=== PATIENT | female | born 1970 | race African-American/Black ===

== ENCOUNTER 2020-12-14 20:09 | Emergency (ER) | payer MEDICARE, MEDICAID ==
[~2020-12-14] VITALS: Ht 167.6 cm; Wt 90.0 kg
[~2020-12-14 20:09] MED LIST: BUPR100T13; DIPH25CA83; LURA80TA; TRAZ-252; [UNRECOGNIZED DRUG - OTHER]; [UNRECOGNIZED DRUG - REMARK]
[2020-12-14 23:43] LABS: CHLORIDE 111 mEq/L (98-107)
[2020-12-14 23:44] LABS: *BARBITURATES SCREEN URINE NEGATIVE (NEGATIVE); *BENZODIAZEPINES SCREEN URINE NEGATIVE (NEGATIVE); CANNABINOID URINE SCREEN PRESUMTIVE POSITIVE (NEGATIVE); METHADONE URINE SCREEN NEGATIVE (NEGATIVE); OPIATES URINE SCREEN NEGATIVE (NEGATIVE); PHENCYCLIDINE URINE SCREEN PRESUMTIVE POSITIVE (NEGATIVE)
[2020-12-14 23:44] LABS: BASOPHILS % 0.6 % (0.0-2.0); EOSINOPHILS % 3.4 % (0.0-5.0); HEMATOCRIT. 42.1 % (36.0-48.0); HEMOGLOBIN. 13.9 g/dL (12.0-16.0); LYMPHOCYTES % 31.9 % (20.0-50.0); MEAN CORPUSCULAR HEMOGLOBIN 28.5 pg (28.0-32.0); MEAN CORPUSCULAR VOLUME 86.3 fL (81.0-99.0); MEAN PLATELET VOLUME 8.9 fl (7.4-10.4); MONOCYTES % 6.9 % (2.0-8.0); NEUTROPHILS % 57.2 % (40.0-76.0); PLATELET 308 x1000/uL (130-400); RED BLOOD CELL COUNT 4.88 mill/uL (4.2-5.4); RED CELL DISTRIBUTION WIDTH 16.3 % (11.6-14.6)
[2020-12-14 23:45] LABS: *AMPHETAMINES SCREEN URINE PRESUMTIVE POSITIVE (NEGATIVE); *COCAINE SCREEN URINE NEGATIVE (NEGATIVE)
[2020-12-14 23:48] LABS: ETHANOL BLOOD < 10 mg/dL
[2020-12-15 00:16] VITALS: BP 115/69
== END 2020-12-15 00:17 | disposition home or self-care (01) ==
LOC: ER 20:09
DX: T43.621A Poisoning by amphetamines, accidental (unintentional), initial encounter (principal); R07.89 Other chest pain; G92 Toxic encephalopathy; F15.129 Other stimulant abuse with intoxication, unspecified; F16.10 Hallucinogen abuse, uncomplicated; F12.10 Cannabis abuse, uncomplicated; Z72.0 Tobacco use; M79.605 Pain in left leg; M25.552 Pain in left hip; G89.29 Other chronic pain; Y92.89 Other specified places as the place of occurrence of the external cause
CPT/HCPCS: 36415; 71045; 80053; 80305; 80320; 83880; 84484; 85025; 93005; 99285; G0480

== ENCOUNTER 2020-12-15 02:03 | Emergency (ER) | payer MEDICARE, MEDICAID ==
[~2020-12-15] VITALS: Ht 167.6 cm; Wt 90.0 kg
[2020-12-15 02:07] VITALS: BP 133/96
== END 2020-12-15 02:29 | disposition home or self-care (01) ==
LOC: ER 02:03
DX: R07.89 Other chest pain (principal); G93.40 Encephalopathy, unspecified; F12.10 Cannabis abuse, uncomplicated; F15.10 Other stimulant abuse, uncomplicated; F13.10 Sedative, hypnotic or anxiolytic abuse, uncomplicated; Z71.51 Drug abuse counseling and surveillance of drug abuser
CPT/HCPCS: 93005; 99283

== ENCOUNTER 2021-01-28 21:49 | Emergency (ER) | payer MEDICARE, MEDICAID ==
[~2021-01-28] VITALS: Ht 170.2 cm; Wt 100.0 kg
[2021-01-28 21:52] VITALS: BP 159/86
== END 2021-01-28 23:00 | disposition left against medical advice (07) ==
LOC: ER 21:49
DX: Z53.21 Procedure and treatment not carried out due to patient leaving prior to being seen by health care provider (principal)

== ENCOUNTER 2021-12-05 23:15 | Emergency (ER) | payer MEDICARE, MEDICAID ==
[~2021-12-05] VITALS: Ht 165.1 cm; Wt 91.0 kg
[~2021-12-05 23:15] MED LIST changes: -LURA80TA; +LURA80TA2
[2021-12-06 06:00] VITALS: BP 133/85
== END 2021-12-06 06:48 | disposition home or self-care (01) ==
LOC: ER 23:45
DX: G89.18 Other acute postprocedural pain (principal); I10 Essential (primary) hypertension
CPT/HCPCS: 73070; 99283

== ENCOUNTER 2022-04-23 09:30 | Inpatient (IN) | payer MEDICARE, MEDICAID ==
[~2022-04-23] VITALS: Ht 167.6 cm; Wt 90.7 kg
[2022-04-23] MEDS ORDERED: MORPHINE SULFATE 4 MG/ML CPJ (NOT FOR IM USE) IV STA (09:50)
[2022-04-23 10:38] LABS: BASOPHILS % 1.2 % (0.0-2.0); EOSINOPHILS % 3.8 % (0.0-5.0); HEMATOCRIT. 41.6 % (36.0-48.0); HEMOGLOBIN. 13.8 g/dL (12.0-16.0); LYMPHOCYTES % 48.8 % (20.0-50.0); MEAN CORPUSCULAR HEMOGLOBIN 28.8 pg (28.0-32.0); MEAN CORPUSCULAR VOLUME 87.1 fL (81.0-99.0); MEAN PLATELET VOLUME 9.1 fl (7.4-10.4); MONOCYTES % 6.6 % (2.0-8.0); NEUTROPHILS % 39.6 % (40.0-76.0); PLATELET 245 x1000/uL (130-400); RED BLOOD CELL COUNT 4.78 mill/uL (4.2-5.4); RED CELL DISTRIBUTION WIDTH 16.7 % (11.6-14.6)
[2022-04-23 10:47] LABS: CHLORIDE 106 mEq/L (98-107)
[2022-04-23 10:50] LABS: INR 1.1; PROTHROMBIN TIME 11.4 sec (9.6-11.0)
[2022-04-23] MEDS ORDERED: MORPHINE SULFATE 4 MG/ML CPJ (NOT FOR IM USE) IV ONE (13:15)
[2022-04-23] MEDS ORDERED: CLONIDINE 0.1MG TABLET PO PRN (14:15)
[2022-04-23] MEDS ORDERED: DOCUSATE SODIUM 100MG CAPSULE PO PRN (14:15)
[2022-04-23] MEDS ORDERED: ONDANSETRON HCL 4MG/2ML INJ IV PRN (14:15)
[2022-04-23] MEDS ORDERED: KETOROLAC 15MG/ML VIAL IV PRN (14:15)
[2022-04-23] MEDS ORDERED: ACETAMINOPHEN 325MG TABLET PO PRN ×2 (14:15)
[2022-04-23] MEDS ORDERED: IPRATROPIUM/ALBUTEROL 0.5-3(2.5)MG/3ML NEB NEB PRN (14:15)
[2022-04-23] MEDS ORDERED: MAGNESIUM/ALUMINUM HYDROXIDE/SIMETHICONE 30ML UDC PO PRN (14:15)
[2022-04-23] MEDS ORDERED: NITROGLYCERIN 0.4MG TABLET SL SL PRN (14:15)
[2022-04-23] MEDS ORDERED: GUAIFENESIN 200MG/10ML SUGAR FREE UDC PO PRN (14:15)
[2022-04-23] MEDS ORDERED: NALOXONE HCL 0.4MG/ML VIAL IV PRN (14:30)
[2022-04-23 15:04] LABS: T4 FREE 1.23 ng/dL (0.76-1.46)
[2022-04-23 15:21] LABS: VITAMIN B12 SERUM 363 pg/mL (211-911)
[2022-04-23 16:00] VITALS: BP 122/64
[2022-04-23 16:32] VITALS: BP 122/64
[2022-04-23] MEDS: ENOXAPARIN 30MG/0.3ML SYR SUBCUT SCH (18:02)
[2022-04-23 20:00] VITALS: BP 104/62
[2022-04-23] MEDS: TRAMADOL 50MG TABLET PO PRN (20:56)
[2022-04-23] MEDS: ASCORBIC ACID 500 MG TABLET PO SCH (20:57)
[2022-04-23] MEDS: FAMOTIDINE 20MG TABLET PO SCH (20:57)
[2022-04-23] MEDS ORDERED: ZOLPIDEM TARTRATE 5MG TABLET PO PRN (21:00)
[2022-04-23 23:32] LABS: CREATINE KINASE 131 IU/L (26-192); CREATINE KINASE MB FRACTION < 1.0 ng/mL (0.5-3.6)
[2022-04-24] VITALS (7 sets, daily range): BP systolic 90–120; BP diastolic 55–85
[2022-04-24] MEDS: MORPHINE SULFATE 2 MG/ML CPJ (NOT FOR IM USE) IV PRN ×2 (03:47→17:41)
[2022-04-24] MEDS: ENOXAPARIN 30MG/0.3ML SYR SUBCUT SCH ×2 (05:23→17:40)
[2022-04-24 08:18] LABS: BASOPHILS % 0.5 % (0.0-2.0); EOSINOPHILS % 4.6 % (0.0-5.0); HEMATOCRIT. 35.4 % (36.0-48.0); HEMOGLOBIN. 11.7 g/dL (12.0-16.0); LYMPHOCYTES % 27.6 % (20.0-50.0); MEAN CORPUSCULAR HEMOGLOBIN 28.5 pg (28.0-32.0); MEAN CORPUSCULAR VOLUME 86.1 fL (81.0-99.0); MEAN PLATELET VOLUME 9.3 fl (7.4-10.4); MONOCYTES % 8.4 % (2.0-8.0); NEUTROPHILS % 58.9 % (40.0-76.0); PLATELET 212 x1000/uL (130-400); RED BLOOD CELL COUNT 4.11 mill/uL (4.2-5.4); RED CELL DISTRIBUTION WIDTH 15.8 % (11.6-14.6)
[2022-04-24] MEDS: FAMOTIDINE 20MG TABLET PO SCH ×2 (09:21→20:16)
[2022-04-24] MEDS: ZINC SULFATE 220 MG ( 50 ) CAPSULE PO SCH (09:21)
[2022-04-24] MEDS: ASCORBIC ACID 500 MG TABLET PO SCH ×2 (09:21→20:16)
[2022-04-24 09:55] LABS: CHLORIDE 108 mEq/L (98-107)
[2022-04-24 10:05] LABS: CREATINE KINASE 79 IU/L (26-192); CREATINE KINASE MB FRACTION < 1.0 ng/mL (0.5-3.6)
[2022-04-25 04:00] VITALS: BP 102/70
[2022-04-25] MEDS: ENOXAPARIN 30MG/0.3ML SYR SUBCUT SCH ×2 (05:21→17:57)
[2022-04-25] MEDS: MORPHINE SULFATE 2 MG/ML CPJ (NOT FOR IM USE) IV PRN ×2 (05:41→18:33)
[2022-04-25 06:30] LABS: HEMATOCRIT 36.5 % (36.0-48.0); HEMOGLOBIN 12.1 g/dL (12.0-16.0); MEAN CORPUSCULAR HEMOGLOBIN 28.6 pg (28.0-32.0); MEAN CORPUSCULAR VOLUME 86.6 fL (81.0-99.0); PLATELET 217 x1000/uL (130-400); RED BLOOD CELL COUNT 4.22 mill/uL (4.2-5.4); RED CELL DISTRIBUTION WIDTH 15.9 % (11.6-14.6)
[2022-04-25 07:10] LABS: CHLORIDE 107 mEq/L (98-107)
[2022-04-25 08:00] VITALS: BP 93/61
[2022-04-25] MEDS: FAMOTIDINE 20MG TABLET PO SCH ×2 (08:53→21:25)
[2022-04-25] MEDS: ZINC SULFATE 220 MG ( 50 ) CAPSULE PO SCH (08:53)
[2022-04-25] MEDS: ASCORBIC ACID 500 MG TABLET PO SCH ×2 (08:53→21:25)
[2022-04-25 12:00] VITALS: BP_SYST 106; BP_SYST 93; BP_DIAS 55; BP_DIAS 73
[2022-04-25 16:00] VITALS: BP 106/73
[2022-04-25 19:39] LABS: HEMATOCRIT 37.1 % (36.0-48.0); HEMOGLOBIN 12.2 g/dL (12.0-16.0); MEAN CORPUSCULAR HEMOGLOBIN 28.7 pg (28.0-32.0); MEAN CORPUSCULAR VOLUME 86.9 fL (81.0-99.0); PLATELET 225 x1000/uL (130-400); RED BLOOD CELL COUNT 4.27 mill/uL (4.2-5.4); RED CELL DISTRIBUTION WIDTH 16.2 % (11.6-14.6)
[2022-04-25 19:45] LABS: CHLORIDE 106 mEq/L (98-107)
[2022-04-25 20:00] VITALS: BP 92/60
[2022-04-25] MEDS: TRAMADOL 50MG TABLET PO PRN (21:25)
[2022-04-26] VITALS: BP 100/69
[2022-04-26 04:00] VITALS: BP 115/69
[2022-04-26] MEDS: ENOXAPARIN 30MG/0.3ML SYR SUBCUT SCH (06:52)
[2022-04-26] MEDS: MORPHINE SULFATE 2 MG/ML CPJ (NOT FOR IM USE) IV PRN (06:55)
[2022-04-26 08:00] VITALS: BP 91/57
[2022-04-26] MEDS: ASCORBIC ACID 500 MG TABLET PO SCH (08:29)
[2022-04-26] MEDS: FAMOTIDINE 20MG TABLET PO SCH (08:29)
[2022-04-26] MEDS: ZINC SULFATE 220 MG ( 50 ) CAPSULE PO SCH (08:29)
[2022-04-26 12:00] VITALS: BP 84/47
[2022-04-26 16:00] VITALS: BP 98/67
== END 2022-04-26 18:12 | DRG 563 ==
LOC: ER 09:30 → 6EST 13:04 → EDBEDREQTM 13:09 → EDBEDREQ 13:09 → EDBEDREQSVC 13:09 → EDBEDREQ 13:10 → 6EST 14:48
PROVIDERS: ADMIT Internal Medicine; ATTEND Internal Medicine
DX: S82.492A Other fracture of shaft of left fibula, initial encounter for closed fracture (principal); S82.192A Other fracture of upper end of left tibia, initial encounter for closed fracture; M21.962 Unspecified acquired deformity of left lower leg; Z20.822 Contact with and (suspected) exposure to COVID-19; Z99.3 Dependence on wheelchair; Z82.49 Family history of ischemic heart disease and other diseases of the circulatory system; W05.0XXA Fall from non-moving wheelchair, initial encounter; Y93.89 Activity, other specified; Y92.89 Other specified places as the place of occurrence of the external cause; Y99.8 Other external cause status
CPT/HCPCS: 36415; 73552; 73590; 73700; 80048; 80053; 82550; 82553; 82607; 82746; 83540; 83550; 83735; 84100; 84439; 84443; 84484; 85025; 85027; 87426; 93306; 93970; 97162; 97166; 97530; 99285; J1650; J1885; J2270

== ENCOUNTER 2023-11-26 14:34 | Emergency (ER) | payer MEDICARE, MEDICAID ==
[~2023-11-26] VITALS: Ht 175.3 cm; Wt 82.0 kg
[2023-11-26] MEDS: ACETAMINOPHEN 325MG TABLET PO ONE (14:45)
[2023-11-26 14:48] VITALS: BP 134/62; PULSE 78; RESP 16; TEMP 98.3; O2SAT 98
[2023-11-26 17:35] LABS: BASOPHILS % 1.4 % (0.0-2.0); EOSINOPHILS % 2.8 % (0.0-5.0); HEMATOCRIT. 41.3 % (36.0-48.0); HEMOGLOBIN. 13.6 g/dL (12.0-16.0); LYMPHOCYTES % 28.2 % (20.0-50.0); MEAN CORPUSCULAR HEMOGLOBIN 30.3 pg (28.0-32.0); MEAN CORPUSCULAR HGB CONC 32.9 g/dL (31.0-37.0); MEAN CORPUSCULAR VOLUME 92.1 fL (81.0-99.0); MEAN PLATELET VOLUME 9.2 fl (7.4-10.4); MONOCYTES % 8.2 % (2.0-8.0); NEUTROPHILS % 59.4 % (40.0-76.0); PLATELET 261 x1000/uL (130-400); RED BLOOD CELL COUNT 4.48 mill/uL (4.2-5.4); RED CELL DISTRIBUTION WIDTH 14.3 % (11.6-14.6)
[2023-11-26 17:39] LABS: CHLORIDE 109 mEq/L (98-107); POTASSIUM 3.7 mEq/L (3.5-5.1); SODIUM 142 mEq/L (136-145)
[2023-11-26 17:40] LABS: CARBON DIOXIDE 32 mEq/L (21-32)
[2023-11-26 17:41] LABS: CALCIUM 9.3 mg/dL (8.7-10.4)
[2023-11-26 17:45] LABS: CREATININE 0.8 mg/dL (0.6-1.0); GLUCOSE 100 mg/dL (70-105); UREA NITROGEN BLOOD 10 mg/dL (9-23)
[2023-11-26 17:47] LABS: ALANINE AMINOTRANSFERASE 15 IU/L (10-49); ALBUMIN 4.5 g/dL (3.2-4.8); ASPARTATE AMINOTRANSFERASE 18 IU/L (<34)
[2023-11-26 17:48] LABS: BILIRUBIN TOTAL 0.3 mg/dL (0.1-1.0); PROTEIN TOTAL 7.2 g/dL (6.0-8.3)
[2023-11-26 19:08] LABS: ERYTHROCYTE SEDIMENTATION RATE 22 mm/hr (0-30)
== END 2023-11-26 18:15 | disposition home or self-care (01) ==
LOC: ER 14:34
DX: M25.552 Pain in left hip (principal); W05.0XXA Fall from non-moving wheelchair, initial encounter; Y93.89 Activity, other specified; Y92.89 Other specified places as the place of occurrence of the external cause; Y99.8 Other external cause status
CPT/HCPCS: 36415; 73502; 73700; 80053; 85025; 85651; 99284

== ENCOUNTER 2023-12-18 16:22 | Emergency (ER) | payer MEDICARE, MEDICAID ==
[~2023-12-18] VITALS: Ht 170.2 cm; Wt 73.0 kg
[2023-12-18 16:28] VITALS: BP 118/93; PULSE 91; RESP 14; O2SAT 100
[2023-12-18 17:06] LABS: CLARITY URINE CLOUDY (CLEAR); COLOR URINE YELLOW (YELLOW); GLUCOSE URINE NEGATIVE (NEGATIVE); KETONES URINE TRACE (NEGATIVE); LEUKOCYTE ESTERASE URINE NEGATIVE (NEGATIVE); NITRITE URINE NEGATIVE (NEGATIVE); OCCULT BLOOD URINE TRACE (NEGATIVE); PH URINE 5.5 (4.5-8.0); PROTEIN URINE NEGATIVE (NEGATIVE)
[2023-12-18 17:41] LABS: BACTERIA URINE 2+; SQUAMOUS EPITHELIAL CELL URINE 1+ /lpf (RARE/1+); WBC URINE 0-2 /hpf (0-2)
[2023-12-18 20:25] VITALS: TEMP 99.8
[2023-12-18] MEDS: ACETAMINOPHEN 325MG TABLET PO ONE (20:25)
== END 2023-12-18 22:19 | disposition home or self-care (01) ==
LOC: ER 16:22
DX: M79.605 Pain in left leg (principal); Z86.73 Personal history of transient ischemic attack (TIA), and cerebral infarction without residual deficits
CPT/HCPCS: 81003; 93970; 99284

== ENCOUNTER 2024-11-04 22:25 | Emergency (ER) | payer MEDICARE, MEDICAID ==
[~2024-11-04] VITALS: Ht 165.1 cm; Wt 80.0 kg
[~2024-11-04 22:25] MED LIST changes: +ASPI-1406 PO; +LIP40 PO
[2024-11-04 22:26] VITALS: TEMP 37.1; O2SAT 100
[2024-11-05 00:20] VITALS: TEMP 98.1
[2024-11-05] MEDS: ACETAMINOPHEN 325MG TABLET PO ONE (00:20)
[2024-11-05] MEDS ORDERED: IBUP-2028 MT (02:14)
[2024-11-05 04:08] VITALS: BP 88/58; PULSE 71; RESP 12; O2SAT 91
== END 2024-11-05 04:15 | disposition home or self-care (01) ==
LOC: ER 22:25
DX: S09.90XA Unspecified injury of head, initial encounter (principal); M54.2 Cervicalgia; Z79.899 Other long term (current) drug therapy; Z86.73 Personal history of transient ischemic attack (TIA), and cerebral infarction without residual deficits; Z99.3 Dependence on wheelchair; Z79.82 Long term (current) use of aspirin; Y08.89XA Assault by other specified means, initial encounter; Y93.89 Activity, other specified; Y92.89 Other specified places as the place of occurrence of the external cause; Y99.8 Other external cause status
CPT/HCPCS: 99284

== ENCOUNTER 2024-12-16 07:10 | Inpatient (IN) | payer MEDICARE, MEDICAID ==
[~2024-12-16] VITALS: Ht 170.2 cm; Wt 73.5 kg
[~2024-12-16 07:10] MED LIST changes: -ASPI-1406 PO; -DIPH25CA83; +IBUP-2028 MT; -LIP40 PO; -LURA80TA2; +QUET50TA PO; -TRAZ-252; -[UNRECOGNIZED DRUG - OTHER]; -[UNRECOGNIZED DRUG - REMARK]
[2024-12-16 07:43] LABS: BASOPHILS % 0.3 % (0.0-2.0); EOSINOPHILS % 1.7 % (0.0-5.0); HEMATOCRIT. 43.7 % (36.0-48.0); HEMOGLOBIN. 13.8 g/dL (12.0-16.0); LYMPHOCYTES % 19.5 % (20.0-50.0); MEAN PLATELET VOLUME 8.7 fl (7.4-10.4); MONOCYTES % 8.4 % (2.0-8.0); NEUTROPHILS % 70.1 % (40.0-76.0); PLATELET 245 x1000/uL (130-400); RED BLOOD CELL COUNT 4.83 mill/uL (4.2-5.4); RED CELL DISTRIBUTION WIDTH 15.6 % (11.6-14.6)
[2024-12-16 08:01] LABS: CREATININE 0.9 mg/dL (0.6-1.0)
[2024-12-16 08:02] LABS: ETHANOL BLOOD < 10 mg/dL (<10); UREA NITROGEN BLOOD 17 mg/dL (9-23)
[2024-12-16] MEDS ORDERED: IPRATROPIUM/ALBUTEROL 0.5-3(2.5)MG/3ML NEB HHN PRN (11:00)
[2024-12-16] MEDS ORDERED: DOCUSATE SODIUM 100MG CAPSULE PO PRN (11:00)
[2024-12-16] MEDS ORDERED: CLONIDINE 0.1MG TABLET PO PRN (11:00)
[2024-12-16] MEDS ORDERED: ACETAMINOPHEN 325MG TABLET PO PRN (11:00)
[2024-12-16] MEDS ORDERED: ACETAMINOPHEN 650MG/20.3ML UDC GT PRN (11:00)
[2024-12-16 11:30] VITALS: BP 151/95; PULSE 80; RESP 18; TEMP 36.3
[2024-12-16] MEDS: PANTOPRAZOLE SODIUM 40 MG/VIAL IV SCH (11:48)
[2024-12-16] MEDS: AMLODIPINE 10MG TABLET PO SCH (11:49)
[2024-12-16] MEDS: ENOXAPARIN 40MG/0.4ML SYR SUBCUT SCH (11:50)
[2024-12-16 12:00] VITALS: BP 151/95; PULSE 80; RESP 18; TEMP 36.2; O2SAT 100
[2024-12-16] MEDS: MVI, ADULT NO.1 10 ML, FOLIC ACID 1 MG, THIAMINE HCL 100 MG in SODIUM CHLORIDE 0.9% 1,0... IV ONE (12:30)
[2024-12-16 14:56] LABS: CREATINE KINASE MB FRACTION 4.5 ng/mL (0.5-3.6); TROPONIN I HIGH SENSITIVITY < 4 ng/L (3.0-34)
[2024-12-16 14:57] LABS: PHOSPHORUS 3.7 mg/dL (2.5-4.9)
[2024-12-16 16:00] VITALS: BP 116/75; PULSE 82; RESP 18; TEMP 36.3; O2SAT 100
[2024-12-16] MEDS ORDERED: QUET50TA23 PO (17:05)
[2024-12-16 17:06] LABS: CREATINE KINASE MB FRACTION 3.1 ng/mL (0.5-3.6); TROPONIN I HIGH SENSITIVITY < 4 ng/L (3.0-34)
[2024-12-16] MEDS: LOSARTAN 25 MG TABLET PO SCH (17:11)
[2024-12-16 20:00] VITALS: BP 104/68; PULSE 77; RESP 18; TEMP 35.6; O2SAT 97
[2024-12-16] MEDS: ATORVASTATIN CALCIUM 40MG TABLET PO SCH (20:47)
[2024-12-17] VITALS: BP 118/54; PULSE 78; RESP 20; TEMP 36.1; O2SAT 98
[2024-12-17 01:34] LABS: CREATINE KINASE MB FRACTION 1.9 ng/mL (0.5-3.6)
[2024-12-17 01:35] LABS: TROPONIN I HIGH SENSITIVITY < 4 ng/L (3.0-34)
[2024-12-17 04:00] VITALS: BP 128/89; PULSE 86; RESP 19; TEMP 36.2; O2SAT 97
[2024-12-17 07:40] LABS: BASOPHILS % 0.5 % (0.0-2.0); EOSINOPHILS % 2.3 % (0.0-5.0); HEMATOCRIT. 42.3 % (36.0-48.0); HEMOGLOBIN. 13.6 g/dL (12.0-16.0); LYMPHOCYTES % 24.4 % (20.0-50.0); MEAN PLATELET VOLUME 9.7 fl (7.4-10.4); MONOCYTES % 7.0 % (2.0-8.0); NEUTROPHILS % 65.8 % (40.0-76.0); PLATELET 210 x1000/uL (130-400); RED BLOOD CELL COUNT 4.67 mill/uL (4.2-5.4); RED CELL DISTRIBUTION WIDTH 15.0 % (11.6-14.6)
[2024-12-17 07:59] LABS: CREATININE 0.8 mg/dL (0.6-1.0); UREA NITROGEN BLOOD 14 mg/dL (9-23)
[2024-12-17 08:00] VITALS: BP 117/68; PULSE 68; RESP 17; TEMP 37.1; O2SAT 98
[2024-12-17] MEDS: ASPIRIN 81MG EC TABLET PO SCH (10:48)
[2024-12-17] MEDS: QUETIAPINE FUMARATE 50MG TABLET PO SCH (10:48)
[2024-12-17 12:00] VITALS: BP 118/73; PULSE 63; RESP 18; TEMP 37.2; O2SAT 99
[2024-12-17] MEDS: BUPROPION HCL 100MG SR TABLET PO SCH (12:00)
[2024-12-17 16:00] VITALS: BP 120/70; PULSE 65; RESP 19; TEMP 37.1; O2SAT 99
[2024-12-17 20:00] VITALS: BP 143/77; PULSE 60; RESP 18; TEMP 36.4; O2SAT 95
[2024-12-18 04:00] VITALS: BP 116/65; PULSE 79; RESP 18; TEMP 36.5; O2SAT 95
[2024-12-18] MEDS: ACETAMINOPHEN 650MG/20.3ML UDC PO PRN (05:01)
[2024-12-18 08:00] VITALS: BP 121/69; PULSE 75; RESP 18; TEMP 36.4; O2SAT 97
[2024-12-18 08:04] LABS: BASOPHILS % 0.6 % (0.0-2.0); EOSINOPHILS % 2.2 % (0.0-5.0); HEMATOCRIT. 40.6 % (36.0-48.0); HEMOGLOBIN. 12.9 g/dL (12.0-16.0); LYMPHOCYTES % 24.0 % (20.0-50.0); MEAN PLATELET VOLUME 9.1 fl (7.4-10.4); MONOCYTES % 9.0 % (2.0-8.0); NEUTROPHILS % 64.2 % (40.0-76.0); PLATELET 210 x1000/uL (130-400); RED BLOOD CELL COUNT 4.50 mill/uL (4.2-5.4); RED CELL DISTRIBUTION WIDTH 14.8 % (11.6-14.6)
[2024-12-18 08:16] LABS: CLARITY URINE CLEAR (CLEAR); COLOR URINE YELLOW (YELLOW); GLUCOSE URINE NEGATIVE (NEGATIVE); KETONES URINE NEGATIVE (NEGATIVE); LEUKOCYTE ESTERASE URINE 3+ (NEGATIVE); NITRITE URINE NEGATIVE (NEGATIVE); OCCULT BLOOD URINE TRACE (NEGATIVE); PH URINE 6.5 (4.5-8.0); PROTEIN URINE NEGATIVE (NEGATIVE); SPECIFIC GRAVITY URINE 1.017 (1.005-1.030); UROBILINOGEN URINE 1.0 E.U./dL (0.2-1.0)
[2024-12-18 08:29] LABS: T4 FREE 1.14 ng/dL (0.89-1.76)
[2024-12-18 08:30] LABS: CREATININE 0.8 mg/dL (0.6-1.0); FOLIC ACID (FOLATE) SERUM 10.90 ng/mL (>5.38); UREA NITROGEN BLOOD 14 mg/dL (9-23); VITAMIN B12 SERUM 409 pg/mL (211-911)
[2024-12-18 08:30] LABS: SQUAMOUS EPITHELIAL CELL URINE 2+ /lpf (RARE/1+); WBC URINE 25-50 /hpf (0-2)
[2024-12-18 08:31] LABS: BACTERIA URINE 3+
[2024-12-18 08:32] LABS: PHOSPHORUS 2.8 mg/dL (2.5-4.9)
[2024-12-18 08:33] LABS: TRICHOMONAS URINE FEW
[2024-12-18 08:57] LABS: *AMPHETAMINES SCREEN URINE NEGATIVE (NEGATIVE); *BARBITURATES SCREEN URINE NEGATIVE (NEGATIVE); *BENZODIAZEPINES SCREEN URINE NEGATIVE (NEGATIVE); *COCAINE SCREEN URINE PRESUMPTIVE POSITIVE (NEGATIVE)
[2024-12-18 08:58] LABS: CANNABINOID URINE SCREEN NEGATIVE (NEGATIVE); ECSTASY MDMA SCREEN URINE NEGATIVE (NEGATIVE); METHADONE URINE SCREEN NEGATIVE (NEGATIVE); OPIATES URINE SCREEN NEGATIVE (NEGATIVE); PHENCYCLIDINE URINE SCREEN PRESUMTIVE POSITIVE (NEGATIVE)
[2024-12-18] MEDS: FOLIC ACID 1 MG, THIAMINE HCL 100 MG, MVI, ADULT NO.1 10 ML in DEXTROSE 5% WATER 1,000 ML IV ONE (09:25)
[2024-12-18 12:00] VITALS: BP 126/72; PULSE 70; RESP 18; TEMP 36.3; O2SAT 98
[2024-12-18 16:00] VITALS: BP 130/65; PULSE 62; RESP 18; TEMP 36.1; O2SAT 98
[2024-12-18] MEDS: METRONIDAZOLE 500 MG PREMIX 100 ML IV SCH (17:54)
[2024-12-18] MEDS: CEFTRIAXONE 1GM/50ML 50 ML IV SCH (19:41)
[2024-12-18 20:00] VITALS: BP 116/72; PULSE 72; RESP 20; TEMP 37.1; O2SAT 100
[2024-12-18] MEDS: ONDANSETRON HCL 4MG/2ML INJ IV PRN (20:54)
[2024-12-19] VITALS: BP 105/75; PULSE 82; RESP 19; TEMP 36.6; O2SAT 95
[2024-12-19 04:00] VITALS: BP 98/66; PULSE 77; RESP 19; TEMP 36.4; O2SAT 99
[2024-12-19 08:00] VITALS: BP 100/66; PULSE 69; RESP 20; TEMP 36.2; O2SAT 100
[2024-12-19 08:28] LABS: BASOPHILS % 0.5 % (0.0-2.0); EOSINOPHILS % 3.7 % (0.0-5.0); HEMATOCRIT. 40.2 % (36.0-48.0); HEMOGLOBIN. 12.9 g/dL (12.0-16.0); LYMPHOCYTES % 25.7 % (20.0-50.0); MEAN PLATELET VOLUME 9.1 fl (7.4-10.4); MONOCYTES % 8.1 % (2.0-8.0); NEUTROPHILS % 62.0 % (40.0-76.0); PLATELET 200 x1000/uL (130-400); RED BLOOD CELL COUNT 4.45 mill/uL (4.2-5.4); RED CELL DISTRIBUTION WIDTH 15.2 % (11.6-14.6)
[2024-12-19 08:36] LABS: CREATININE 0.8 mg/dL (0.6-1.0)
[2024-12-19 08:37] LABS: UREA NITROGEN BLOOD 14 mg/dL (9-23)
[2024-12-19 08:39] LABS: PHOSPHORUS 3.4 mg/dL (2.5-4.9)
[2024-12-19] MEDS: SODIUM CHLORIDE 0.9% 1,000 ML IV SCH (09:30)
[2024-12-19] MEDS: SODIUM CHLORIDE 0.9% 500 ML IV ONE (09:30)
[2024-12-19 12:00] VITALS: BP 86/48; PULSE 82; RESP 20; TEMP 36.4; O2SAT 100
[2024-12-19 16:00] VITALS: BP 108/74; PULSE 89; RESP 20; TEMP 36.4; O2SAT 99
[2024-12-19 17:02] VITALS: BP 108/74; PULSE 89; TEMP 97.5; O2SAT 99
[2024-12-19] MEDS ORDERED: METR-167 MT (17:10)
[2024-12-19] MEDS ORDERED: NITR-87 MT (17:10)
== END 2024-12-19 17:40 | disposition home or self-care (01) | DRG 917 ==
LOC: ER 07:10 → 7WST 10:03 → EDBEDREQ 10:07 → EDBEDREQTM 10:07 → ENRESERV 10:12 → 6EST 12-17 08:38
PROVIDERS: ADMIT Internal Medicine; ATTEND Internal Medicine
PROC: GZ56ZZZ Individual Psychotherapy, Supportive (ICD-10-PCS; principal; 2024-12-17)
DX: T50.911A Poisoning by multiple unspecified drugs, medicaments and biological substances, accidental (unintentional), initial encounter (principal); G92.8 Other toxic encephalopathy; N39.0 Urinary tract infection, site not specified; Z59.00 Homelessness unspecified; I10 Essential (primary) hypertension; F31.9 Bipolar disorder, unspecified; F14.90 Cocaine use, unspecified, uncomplicated; Y92.89 Other specified places as the place of occurrence of the external cause; Z79.899 Other long term (current) drug therapy; Z86.73 Personal history of transient ischemic attack (TIA), and cerebral infarction without residual deficits; Z82.49 Family history of ischemic heart disease and other diseases of the circulatory system; E11.9 Type 2 diabetes mellitus without complications; A59.9 Trichomoniasis, unspecified; F19.90 Other psychoactive substance use, unspecified, uncomplicated
CPT/HCPCS: 36415; 71045; 80048; 80305; 80320; 81003; 82140; 82550; 82553; 82607; 82746; 83036; 83605; 83735; 84100; 84145; 84439; 84443; 84484; 85025; 93970; 97116; 97162; 99285; A4606; J0696; J1650; J2405; J2470; J3411; J3490; J7030; J7070; G0480

== ENCOUNTER 2025-01-22 07:47 | Emergency (ER) | payer MEDICARE, MEDICAID ==
[~2025-01-22] VITALS: Ht 165.1 cm; Wt 73.0 kg
[~2025-01-22 07:47] MED LIST changes: -BUPR100T13; -IBUP-2028 MT; +METR-167 MT; +NITR-87 MT
[2025-01-22 07:49] VITALS: BP 123/85; PULSE 83; RESP 16; TEMP 37.1; O2SAT 100
[2025-01-22 08:41] VITALS: TEMP 98.7
[2025-01-22] MEDS: ACETAMINOPHEN 500MG TABLET PO ONE (08:41)
== END 2025-01-22 10:02 | disposition home or self-care (01) ==
LOC: ER 07:47
DX: M54.9 Dorsalgia, unspecified (principal); F31.9 Bipolar disorder, unspecified; Z79.899 Other long term (current) drug therapy; Z99.3 Dependence on wheelchair
CPT/HCPCS: 99283